=== PATIENT | male | born 1970 | race Two or more races ===

== ENCOUNTER 2019-05-08 13:48 | Inpatient (IN) | payer OTHER ==
[~2019-05-08] VITALS: Ht 177.8 cm; Wt 110.2 kg
--- NOTE | 2019-05-08 13:55 | NUR ---
PT BIB RA FROM [facility] WITH A C/O FALL FROM 8'-10' CEILING ON A SET. PT LANDED ON BILATERAL FEET AND IS C/O SEVERE, SHARP LOWER BACK PAIN. PT IS ABLE TO MINIMALLY MOVE BLE, BUT IS IN SEVERE PAIN WITH MOVEMENT. PT WAS TRANSFERED FROM THE EMS RDOWLING TO ER [facility]. PT DENIES PELVIC PAIN.
[2019-05-08] MEDS ORDERED: IV NS 0.9% 1,000 ML BAG IV ONE (14:00)
[2019-05-08] MEDS ORDERED: ONDANSETRON HCL/PF 4 MG/2 ML VIAL IVP ONE (14:00)
[2019-05-08] MEDS ORDERED: TDAP [DIPH/PERTUSSIS/TET] 0.5 ML VIAL IM ONE ×2 (14:00→14:01)
[2019-05-08] MEDS ORDERED: HYDROMORPHONE INJ 2 MG/ML DISP.SYRIN IV ONE ×2 (14:00→15:30)
[2019-05-08] MEDS ORDERED: HYDROMORPHONE 1 MG/1 ML DISP.SYRIN ONE ×2 (14:01→14:51)
[2019-05-08] MEDS ORDERED: ONDANSETRON HCL/PF 4 MG/2 ML VIAL ONE ×2 (14:01→16:05)
[2019-05-08 14:09] LABS: BASOPHILS # (AUTO) 0.1 /CMM (0.0-0.2); BASOPHILS % (AUTO) 0.6 % (0.0-2.0); EOSINOPHILS % (AUTO) 1.1 % (0.0-6.0); HEMATOCRIT 46 % (39-51); HEMOGLOBIN 15.3 g/dL (13.5-17.5); LYMPHOCYTES % (AUTO) 16.4 % (20.0-44.0); MEAN CORPUSCULAR HGB CONC 34 g/dl (31.0-36.0); MEAN CORPUSCULAR VOLUME 92 fL (80-96); MONOCYTES % (AUTO) 8.4 % (2.0-12.0); NEUTROPHILS % (AUTO) 73.5 % (43.0-81.0); PLATELET COUNT (AUTO) 258 /CMM (150-450); RED BLOOD CELL COUNT(AUTO) 4.98 MIL/uL (4.5-6.0); WHITE BLOOD COUNT (AUTO) 12.3 K/uL (4.3-11.0)
--- NOTE | 2019-05-08 14:11 | NUR ---
PT IS GOING TO CT VIA [facility].
[2019-05-08 14:21] LABS: CALCIUM, SERUM 9.2 mg/dL (8.5-10.1); CREATININE 1.2 mg/dL (0.6-1.3)
--- NOTE | 2019-05-08 14:24 | NUR ---
PT RETURNED FROM CT.
[2019-05-08 14:27] LABS: ALBUMIN 3.8 g/dL (3.4-5.0); BILIRUBIN,TOTAL 0.2 mg/dL (0.2-1.0); TOTAL PROTEIN, SERUM 7.3 g/dL (6.4-8.2)
[2019-05-08] MEDS ORDERED: HYDROMORPHONE 1 MG/1 ML DISP.SYRIN IV ONE (15:00)
[2019-05-08] MEDS ORDERED: LORAZEPAM INJ 2 MG/ML VIAL ONE (15:05)
--- NOTE | 2019-05-08 15:06 | NUR ---
Diya NWETON, OUTREACH AND EDUCATION SOCIAL WORKER IS AT THE BEDSIDE AND PT IS C/O BACK SPASMS. VERBAL ORDER FOR 1MG ATIVAN IVP WAS GIVEN. PT WAS MEDICATED BY AMIE DIAZ
[2019-05-08] MEDS ORDERED: HYDROMORPHONE INJ 2 MG/ML DISP.SYRIN ONE (15:28)
[2019-05-08] MEDS ORDERED: LORAZEPAM INJ 2 MG/ML VIAL IV ONE (15:30)
--- NOTE | 2019-05-08 15:30 | NUR ---
Diya NEWTON NP IS AT THE BEDSIDE SPEAKING TO THE PT. PT WAS LOG ROLLED AND PT'S BACK WAS RE-EVALUATED.
--- NOTE | 2019-05-08 15:31 | NUR ---
PT TO BE ADMITTED.
--- NOTE | 2019-05-08 15:36 | NUR ---
PT WAS PLACED ON 2L O2 VIA NC. PT WAS SATURATING AT 82%. PT IS NOW SATURATING AT 98%
--- NOTE | 2019-05-08 15:59 | NUR ---
CAROLYN [phone]
[2019-05-08] MEDS ORDERED: DEXAMETHASONE SOD PHOSPHATE 10 MG/ML VIAL IV ONE (16:00)
[2019-05-08] MEDS ORDERED: ONDANSETRON HCL/PF 4 MG/2 ML VIAL IV ONE (16:05)
--- NOTE | 2019-05-08 16:06 | NUR ---
PT WAS FEELING NAUSEATED. PT REC'D ZOFRAN ORDERED. PT IS ALSO REC'ING AND ICE PACK FOR HIS BACK.
[2019-05-08] MEDS ORDERED: DEXAMETHASONE SOD PHOSPHATE 10 MG/ML VIAL ONE (16:15)
--- NOTE | 2019-05-08 16:40 | NUR ---
PT'S GIRLFRIEND IS AT THE BEDSIDE. PT IS LYING ON HIS RT SIDE AND HAS ICE PACKS TO HIS BACK. PT IS ON 2L O2 VIA NC. PT'S GIRLFRIEND STATED THAT THE PT JUST HAD AN EPIDURAL DONE APPROX 3 WKS AGO FOR THE DISK ISSUE. Diya NEWTON HOUSEPERSON NOTIFIED.
--- NOTE | 2019-05-08 16:53 | NUR ---
CALLED NURSING SUP FOR M/S BED.
[2019-05-08] MEDS ORDERED: ACETAMINOPHEN 325 MG TABLET PO PRN (17:00)
[2019-05-08] MEDS ORDERED: TEMAZEPAM 15 MG CAPSULE PO PRN (17:00)
[2019-05-08] MEDS ORDERED: MAGNESIUM HYDROXIDE 30 ML UDC PO PRN (17:00)
--- NOTE | 2019-05-08 17:41 | NUR ---
TEXTED DR Tia GONZALEZ FOR MRI APPROVAL.
--- NOTE | 2019-05-08 17:49 | NUR ---
NURSING SUP GAVE M/S BED 312-2.
--- NOTE | 2019-05-08 18:03 | NUR ---
REPORT GIVEN TO ANA HOLLOWAY FOR CONTINUITY OF CARE IN MS UNIT
[2019-05-08] MEDS ORDERED: IBUPROFEN 400 MG TABLET PO PRN (18:30)
[2019-05-08 18:50] VITALS: BP_SYST 128; BP_SYST 144; BP_DIAS 83; BP_DIAS 84
--- NOTE | 2019-05-08 18:50 | NUR ---
RN NOTES PATIENT ADMITTED FROM ER [facility] ON Dx OF LOWER BACK PAIN. PATIENT A/O X3. NO ACUTE RESPIRATORY DISTRESS, V/S TAKEN BP-144/84, R-19, 02-95 ROOM AIR, T-97.6, P-100. PATIENT WAS COMPLANING OF LOWER BACK PAIN 4/10 AT THIS TIME. NEXT TO THE BED. CALL LIGHT WITHIN TO REACH. URINAL GIVEN. ENDORSED ONCOMING NURSE FOLLOW PLAN OF CARE, AND COMPUTER ADMISSION .
--- NOTE | 2019-05-08 20:00 | NUR ---
MS RN NOTES RECEIVED PATIENT AWAKE IN BED WITH NO DISTRESS NOTED. CALL LIGHT WITHIN REACH. PERIPHERAL LINE INTACT AND PATENT. ENCOURAGED USE OF CALL LIGHT FOR ASSISTANCE AND VERBALIZED GOOD UNDERSTANDING. BED IN LOW LOCK SETTING. ROOM FREE OF CLUTTER AND BELONGINGS KEPT NEAR BEDSIDE. WILL CONTINUE TO MONITOR.
[2019-05-08] MEDS: ONDANSETRON HCL/PF 4 MG/2 ML VIAL IVP PRN (20:17)
[2019-05-08] MEDS: HYDROMORPHONE INJ 2 MG/ML DISP.SYRIN IV PRN (20:50)
[2019-05-08] MEDS: CARISOPRODOL 350 MG TABLET PO PRN (21:02)
[2019-05-09] MEDS: HYDROMORPHONE INJ 2 MG/ML DISP.SYRIN IV PRN ×4 (04:33→20:44)
--- NOTE | 2019-05-09 06:35 | NUR ---
MS RN NOTES PATIENT ASLEEP IN BED WITH NO DISTRESS NOTED. CALL LIGHT WITHIN REACH. ALL DUE MEDS GIVEN ORDERED WITH NO ASE NOTED. LEFT SHOULDER DRESSING CLEAN DRY INTACT WITH SLING IN PLACE. NO FURTHER C/O PAIN OR DISCOMFORT. PERIPHERAL LINE INTACT AND PATENT. BED IN LOW LOCK SETTING. ROOM FREE OF CLUTTER AND ALL BELONGINGS KEPT NEAR BEDSIDE. WILL ENDORSE TO ONCOMING SHIFT.
[2019-05-09 07:26] LABS: CALCIUM, SERUM 8.9 mg/dL (8.5-10.1); CREATININE 0.9 mg/dL (0.6-1.3); MAGNESIUM 1.9 mg/dL (1.8-2.4); PHOSPHORUS 3.9 mg/dL (2.5-4.9); POTASSIUM 4.1 mmol/L (3.5-5.1)
[2019-05-09 07:31] LABS: BASOPHILS % (AUTO) 0.1 % (0.0-2.0); HEMATOCRIT 46 % (39-51); HEMOGLOBIN 15.4 g/dL (13.5-17.5); LYMPHOCYTES # (AUTO) 0.8 /CMM (0.8-4.8); LYMPHOCYTES % (AUTO) 5.1 % (20.0-44.0); MEAN CORPUSCULAR HGB CONC 34 g/dl (31.0-36.0); MEAN CORPUSCULAR VOLUME 92 fL (80-96); MONOCYTES # (AUTO) 0.7 /CMM (0.1-1.30); MONOCYTES % (AUTO) 4.6 % (2.0-12.0); NEUTROPHILS # (AUTO) 13.9 /CMM (1.8-8.9); NEUTROPHILS % (AUTO) 90.2 % (43.0-81.0); PLATELET COUNT (AUTO) 256 /CMM (150-450); WHITE BLOOD COUNT (AUTO) 15.4 K/uL (4.3-11.0)
[2019-05-09 08:00] VITALS: BP 129/62
--- NOTE | 2019-05-09 09:30 | NUR ---
Patient picked up by radiology staff. Patient medicated
[2019-05-09] MEDS: CARISOPRODOL 350 MG TABLET PO PRN ×2 (09:34→20:43)
[2019-05-09] MEDS: PANTOPRAZOLE 40 MG TABLET.DR PO SCH (09:34)
[2019-05-09] MEDS: DEXAMETHASONE SOD PHOSPHATE 4 MG/ML VIAL IV SCH ×2 (09:35→20:23)
[2019-05-09] MEDS: HYDROCODONE/APAP 10/325MG 1 EA TABLET PO PRN (12:59)
[2019-05-09] MEDS: MAG HYDROX/AL HYDROX/SIMETH 30 ML UDC PO PRN (13:11)
[2019-05-09 16:00] VITALS: BP 137/75
--- NOTE | 2019-05-09 18:39 | NUR ---
Patient resting in bed, girlfriend at the bedside. All needs attended. Pain management as ordered and was able to manage pain level at tolerable level 4-5. Ice packs provided.IV line flushing well. Patient using urinal. Safety precautions in place. Call light within reach. Will endorse to next shift for TORI.
[2019-05-09 20:02] VITALS: BP 124/76
[2019-05-09] MEDS: ONDANSETRON HCL/PF 4 MG/2 ML VIAL IVP PRN (20:23)
[2019-05-09 20:39] VITALS: BP 124/76
--- NOTE | 2019-05-09 22:01 | NUR ---
Patient received in the bed and having back spasms which he states come and go, and they are bad. Medicated for nausea and pain and gave him an ice bag for his back per his requeiste. I had him roll to the left side and he did well but I could see on his face the turning did hurt.
[2019-05-10] MEDS: HYDROMORPHONE INJ 2 MG/ML DISP.SYRIN IV PRN ×2 (02:19→15:20)
[2019-05-10] MEDS: ONDANSETRON HCL/PF 4 MG/2 ML VIAL IVP PRN ×2 (02:28→15:25)
[2019-05-10] MEDS: CARISOPRODOL 350 MG TABLET PO PRN ×2 (04:41→17:47)
[2019-05-10] MEDS: HYDROCODONE/APAP 10/325MG 1 EA TABLET PO PRN ×3 (04:42→20:16)
--- NOTE | 2019-05-10 05:32 | NUR ---
ENDING NOTES: Patient is alert and orientated X4. He is anxious asking questions such as "Will I become addicted to this medication?" , "What about the Coronavirus, what is the hospital doing?" "I have a cough , do you think maybe?" I asked him if [place] had a fever he has not. Told him he was fine. Medicated with dilaudid IV and SOMA and [place] and Zofran and all have been effected for pain and nausea. He states the pain is fine and then a Sharp Spasm will be on his back and left side and "Boy is it bad," he does moan and groan and the pain shows on his face.
[2019-05-10 07:09] LABS: BASOPHILS % (AUTO) 0.1 % (0.0-2.0); HEMATOCRIT 45 % (39-51); HEMOGLOBIN 15.3 g/dL (13.5-17.5); LYMPHOCYTES # (AUTO) 1.4 /CMM (0.8-4.8); LYMPHOCYTES % (AUTO) 5.9 % (20.0-44.0); MEAN CORPUSCULAR HGB CONC 34 g/dl (31.0-36.0); MEAN CORPUSCULAR VOLUME 91 fL (80-96); MONOCYTES # (AUTO) 1.7 /CMM (0.1-1.30); MONOCYTES % (AUTO) 7.3 % (2.0-12.0); NEUTROPHILS # (AUTO) 20.5 /CMM (1.8-8.9); NEUTROPHILS % (AUTO) 86.7 % (43.0-81.0); PLATELET COUNT (AUTO) 266 /CMM (150-450); RED BLOOD CELL COUNT(AUTO) 4.98 MIL/uL (4.5-6.0); WHITE BLOOD COUNT (AUTO) 23.6 K/uL (4.3-11.0)
--- NOTE | 2019-05-10 07:21 | NUR ---
MS RN OPENING NOTE PATIENT IN BED RESTING COMFORTABLY. PATIENT IN NO ACUTE DISTRESS. NO SOB NOTED. PATIENT BREATHING IS EVEN AND UNLABORED. PATIENT STATES 4/10 BACK PAIN, THAT IS TOLERABLE PER PATIENT. HOB IS ELEVATED. BED ALARM IS ON. PATIENT BED IS LOCKED AND IN LOWEST POSITION. CALL LIGHT WITHIN REACH. WILL CONTINUE TO MONITOR.
[2019-05-10 08:00] VITALS: BP 133/87
[2019-05-10 08:25] LABS: CALCIUM, SERUM 9.4 mg/dL (8.5-10.1); POTASSIUM 3.7 mmol/L (3.5-5.1)
[2019-05-10] MEDS: PANTOPRAZOLE 40 MG TABLET.DR PO SCH (09:11)
[2019-05-10] MEDS: DEXAMETHASONE SOD PHOSPHATE 4 MG/ML VIAL IV SCH ×2 (09:11→21:20)
[2019-05-10 15:35] VITALS: BP 128/69
[2019-05-10] MEDS: POLYETHYLENE GLYCOL 3350 17 GM POWD.PACK PO PRN (17:48)
--- NOTE | 2019-05-10 19:00 | NUR ---
MS RN CLOSING NOTE PATIENT IN BED RESTING COMFORTABLY. PATIENT FAMILY AT THE BEDSIDE. PATIENT IN NO ACUTE DISTRESS. NO SOB NOTED. PATIENT BREATHING IS EVEN AND UNLABORED. PATIENT STATING EXPERIENCING MUSCLE SPASMS AND PAIN IS 5/10 AND IS TOLERABLE. PATIENT KEPT CLEAN, DRY AND COMFORTABLE THROUGHOUT SHIFT. NEEDS AND CONCERNS ADDRESSED. PATIENT BED IS LOCKED AND IN LOWEST POSITION. CALL LIGHT WITHIN REACH. WILL ENDORSE CARE TO PM SHIFT FOR TORI.
--- NOTE | 2019-05-10 19:05 | NUR ---
MS RN OPENING NOTES Received patient A/o x4, awake on bed with complaints of severe back pain. Patient claimed to be nauseous with Dilaudid and patient is not due for Zofran at this time. Offered [place] to patient. Discussed the POC, patient verbalized understanding. Educate patient on importance of high fiber diet and ambulation, unless contraindicated, patient verbalized understanding. Kept on bed clean, dry and comfortable. On fall and aspiration precautions. Call light within easy reach. Will continue to monitor accordingly.
[2019-05-10 20:00] VITALS: BP 133/82
--- NOTE | 2019-05-10 20:26 | NUR ---
MS RN NOTES Patient accidentally dropped the [place] 10mg pill upon handling. Wasted pilled accordingly, witnessed by AMIE Prabhakar. Readministered new [place] as ordered.
[2019-05-11] MEDS: HYDROMORPHONE INJ 2 MG/ML DISP.SYRIN IV PRN ×3 (00:24→18:42)
[2019-05-11] MEDS: ONDANSETRON HCL/PF 4 MG/2 ML VIAL IVP PRN (00:24)
--- NOTE | 2019-05-11 06:13 | NUR ---
MS RN CLOSING NOTES Patient asleep, easily awaken. No complaints of pain noted at this time. Patient noted able to sleep within the shift. No new complaints. Kept on bed clean, dry and comfortable. Call light within easy reach. Endorsed.
--- NOTE | 2019-05-11 07:40 | NUR ---
M/S RN NOTES PATIENT RESTING IN BED, NO RESPIRATORY DISTRESS NOTED, NO C/O PAIN AT THIS TIME. SKIN WARM TO TOUCH, IV ACCESS SITE INTACT AND PATENT. PATIENT'S NEEDS ATTENDED, BED ON LOWEST LOCKED POSITION, CALL LIGHT WITHIN REACH. WILL CONTINUE TO MONITOR.
[2019-05-11 08:00] VITALS: BP 128/72
[2019-05-11] MEDS: PANTOPRAZOLE 40 MG TABLET.DR PO SCH (08:12)
[2019-05-11 08:18] LABS: BASOPHILS % (AUTO) 0.2 % (0.0-2.0); HEMATOCRIT 45 % (39-51); HEMOGLOBIN 15.2 g/dL (13.5-17.5); LYMPHOCYTES # (AUTO) 1.9 /CMM (0.8-4.8); LYMPHOCYTES % (AUTO) 12.1 % (20.0-44.0); MEAN CORPUSCULAR HGB CONC 34 g/dl (31.0-36.0); MEAN CORPUSCULAR VOLUME 91 fL (80-96); MONOCYTES # (AUTO) 1.1 /CMM (0.1-1.30); MONOCYTES % (AUTO) 7.2 % (2.0-12.0); NEUTROPHILS # (AUTO) 12.4 /CMM (1.8-8.9); NEUTROPHILS % (AUTO) 80.5 % (43.0-81.0); PLATELET COUNT (AUTO) 248 /CMM (150-450); RED BLOOD CELL COUNT(AUTO) 4.95 MIL/uL (4.5-6.0); WHITE BLOOD COUNT (AUTO) 15.4 K/uL (4.3-11.0)
[2019-05-11 08:25] LABS: CALCIUM, SERUM 9.4 mg/dL (8.5-10.1); CREATININE 0.9 mg/dL (0.6-1.3); POTASSIUM 3.9 mmol/L (3.5-5.1)
[2019-05-11] MEDS ORDERED: CARI350T PO (12:43)
[2019-05-11] MEDS ORDERED: TEMA30CA5 PO (12:44)
[2019-05-11] MEDS ORDERED: HYDR-4354 PO (12:44)
[2019-05-11] MEDS: CARISOPRODOL 350 MG TABLET PO PRN ×2 (14:20→23:28)
--- NOTE | 2019-05-11 15:00 | NUR ---
M/S RN NOTES SPOKE TO PATIENT IN REGARDS OF DISCHARGE ORDER, PATIENT HESITANT TO GET DISCHARGED TODAY. PATIENT STATED THAT HE'D LIKE TO STAY ANOTHER DAY DUE TO THE FACT THAT HE WILL HAVE A HARD TIME AMBULATING WITHOUT PAIN. ALSO HE DOESN'T HAVE TRANSPORTATION TO GET TO HIS CAR AND THAT HE WILL HAVE A HARD TIME DRIVING HIMSELF. NICHO DSOUZA AT BEDSIDE SPEAKING TO PATIENT. WILL FOLLOW UP WITH CM.
[2019-05-11 16:00] VITALS: BP 130/74
[2019-05-11] MEDS: POLYETHYLENE GLYCOL 3350 17 GM POWD.PACK PO PRN (18:50)
[2019-05-11] MEDS: MAG HYDROX/AL HYDROX/SIMETH 30 ML UDC PO PRN (18:50)
--- NOTE | 2019-05-11 19:00 | NUR ---
RECEIVED ALERT ORIENTATED GOOD EYE CONTACT DENIES PAIN AT THIS TIME SMILING
--- NOTE | 2019-05-11 19:02 | NUR ---
M/S RN NOTES PATIENT IN BED AWAKE, NO RESPIRATORY DISTRESS, C/O PAIN, 10, DILAUDID 1MG GIVEN IV. WILL REASSESS. SKIN WARM TO TOUCH, IV ACCESS SITE INTACT AND PATENT. PATIENT'S NEEDS ATTENDED, BED ON LOWEST LOCKED POSITION, CALL LIGHT WITHIN REACH, WILL ENDORSE TO ONCOMING NURSE.
[2019-05-11 20:00] VITALS: BP 118/56
[2019-05-12] MEDS: HYDROMORPHONE INJ 2 MG/ML DISP.SYRIN IV PRN (02:04)
--- NOTE | 2019-05-12 06:29 | NUR ---
closing notes: Slept thru the night only awakened at 2330 c/o spasms medicated with dilaudid 1mg and this was effective. aware he may go home this AM. Moving all extremities.
[2019-05-12] MEDS: ONDANSETRON HCL/PF 4 MG/2 ML VIAL IVP PRN (06:49)
--- NOTE | 2019-05-12 07:15 | NUR ---
MS RN NOTES RECEIVED PATIENT IN BED, ALERT AND AWAKE ORIENTED X4. NO SOB. DENIES ANY C/O PAIN NOR DISCOMFORT AT THIS TIME. RIGHT HAND # 24 SL INTACT AND PATENT. BED IN LOWEST POSITION, LOCKED. BED SIDERAILS UP X2. CALL LIGHT WITHIN REACH.
[2019-05-12] MEDS: HYDROCODONE/APAP 10/325MG 1 EA TABLET PO PRN (07:49)
[2019-05-12] MEDS: PANTOPRAZOLE 40 MG TABLET.DR PO SCH (07:49)
[2019-05-12 08:00] VITALS: BP 132/73
[2019-05-12] MEDS ORDERED: BISACODYL (5 MG) 5 MG TABLET.DR PO PRN (09:00)
[2019-05-12] MEDS: CARISOPRODOL 350 MG TABLET PO PRN (12:04)
[2019-05-12 16:00] VITALS: BP 129/87
--- NOTE | 2019-05-12 17:47 | NUR ---
MS RN NOTES Patient for discharge. Discharge instructions and packet along with prescription given to patient. IV access catheter removed from right hand with catheter tip intact. Patient wanted to shower prior to going home, assisted by systems spec, but when patient went into the shower room, patient complained about the shower room. Observed patient with steady gait during ambulation. Also observed patient while walking back to his room after showering, patient was pushing staff chair from the hallway angrily. Also during lunch time patient complained about the food. While walking towards the patients room, heard some banging noise inside the room and upon entering the room, noted food from lunch scattered on the floor, table tray and inside pull out of table tray. Patient stated it just spilled and apologize for the mess. Patient stated he wants workers comp to pay for everything including his hospitalization, referred patient to billing. Patients girlfriend had called and said that she is driving and on her way to pickling operator the patient. When informed patient that girlfriend is on her way. Per patient he said he called his girlfriend not to come any more because she is . All belongings accounted for. Patient left in stable condition.
== END 2019-05-12 17:00 | disposition home or self-care (01) | DRG 552 ==
LOC: ER 13:50 → MED 18:01
PROVIDERS: ADMIT Nurse Practitioner Acute Care; ATTEND Nurse Practitioner Acute Care
DX: M51.26 Other intervertebral disc displacement, lumbar region (principal); E66.2 Morbid (severe) obesity with alveolar hypoventilation; F12.90 Cannabis use, unspecified, uncomplicated; W13.2XXA Fall from, out of or through roof, initial encounter; M48.061 Spinal stenosis, lumbar region without neurogenic claudication; Z68.34 Body mass index [BMI] 34.0-34.9, adult; S30.0XXA Contusion of lower back and pelvis, initial encounter; Y93.9 Activity, unspecified; Y92.89 Other specified places as the place of occurrence of the external cause
CPT/HCPCS: 36415; 72074-TC; 72131-TC; 72148-TC; 80048-TC; 80076-TC; 83735-TC; 84100-TC; 85025-TC; 85730-TC; 86850-TC; 87081-TC; 90715; 97116-TC; 97530-TC; G0378; J1100; J1170; J2060; J2405; J7030